=== PATIENT | female | born 1990 | race Two or more races ===

== ENCOUNTER 2025-09-28 15:39 | Observation (INO) | payer MEDICAID, SELFPAY ==
--- NOTE | 2025-09-28 15:59 | EKG_ITS ---
[facility] Test Date: 2025-09-28 Pat Name: DEBBIE PRINCE Department: Room: - Gender: Female Manager Cardiac Cath: : 1990 Requested By: Margo Hawley Order Number: [id number] Reading MD: Margo Hawley Measurements Intervals [place] Rate: 53 P: 53 PA: 156 QRS: 68 QRSD: 102 T: 18 QT: 436 QTc: 412 Interpretive Statements SINUS BRADYCARDIA POSSIBLE RIGHT VENTRICULAR CONDUCTION DELAY [RSR (QR) IN V1/V2] MODERATE ST DEPRESSION [0.05+ mV ST DEPRESSION] No previous ECG available for comparison /store/S0/[id number].pdf
--- NOTE | 2025-09-28 16:05 | EDNOTE_ITS ---
<Statement entered by Brittni Mcneil MD - 10/02/25 16:32> I, Britnti Mcneil MD, have reviewed the history, exam, and assessment of the patient. I have evaluated the patient independently and agree with the plan of care documented by [ ]. All diagnostic studies were reviewed and discussed. I confirm the diagnosis as documented by the Resident. I was present during the Medical Decision Making for this patient. The patient's plan of care was created between myself and the Resident and consistent with our discussion of the patient's case. ED Abdominal Pain RME/HPI General Chief Complaint: Abdominal Pain Stated complaint: ABD TENDER/PAIN RADIATING TO R), N/V Arrival date/time: 09/28/25 15:39 RME / HPI RME / HPI narrative: Patient is a 35-year-old female with a past medical history of migraine headaches who presented to the emergency room with chief complaint of tender abdomen. Patient stated abdominal pain began about 6 AM this morning that woke her out of sleep. Patient stated that pain started at the epigastric region and radiated downward towards the lower quadrants. Positive for nausea and vomiting. Patient has been unable to keep food down. Vomiting noted to be clear. Positive for diarrhea going on for the past 2 days with 2-3 bowel movements per day. Patient denied melena or hematochezia. Patient denied hematemesis. Patient's last period 1 week ago. Previous surgical history includes 2 C-sections. Denies any sick contacts. Chills at home. No fevers. Never had a colonoscopy. Denied history of crohns or UC. CBC CMP EKG Troponin Lipase and CT Abdomen Related Data Previous Rx's ?Medication ?Instructions ?Recorded hydrocodone 5 mg-acetaminophen 325 1 tab PO Q6H #20 ta bs 09/30/25 mg tablet Allergies Allergy/AdvReac Type Severity Reaction Status Date / Time No Known Allergies Allergy Verified 09/28/25 15:43 Review of Systems Review of Systems Narrative Review of Systems: General appearance: NO weight change, NO fatigue, NO weakness, NO fever, NO chills, NO night sweats, No cough Skin: NO rash, NO itching, NO sores, NO moles HEENT: NO Trauma, NO nausea, NO vomiting, NO visual changes, NO blurry vision, NO double vision, NO tinnitus, NO vertigo, NO ear discharge, NO rhinorrhea, NO stuffiness, NO sneezing, NO allergy, NO epistaxis. NO Hoarseness, NO sore throat, NO swollen neck. Cardiac: NO Palpitations, NO dyspnea on exertion, NO orthopnea, NO paroxysmal nocturnal dyspnea, NO edema Respiratory: NO Shortness of Breath, NO Wheezing, NO Cough, NO Sputum, NO hemoptysis GI:NO appetite, YES nausea, YES vomiting, NO dysphagia, NO changes in bowel frequency, NO stool color, Yes diarrhea, NO constipation, NO hemetemesis, NO hemorrhoids, NO melena, NO hematechezia, Yes abdominal pain, NO jaundice Renal: NO frequency, NO hesitancy, NO urgency, NO hematuria, NO nocturia, NO incontinence MSK: NO muscle weakness, NO gout, NO arthritis, NO muscle stiffness Neuro: NO headaches, NO tremors, NO weakness, NO paralysis, NO seizures, NO loss of consciousness, NO numbness. Hem: NO anemia, NO easy bruising/bleeding, NO petechiae, NO purpura Endo: NO heat/cold intolerance, NO excessive sweating, NO polyuria, NO polydipsia, NO polyphagia, NO thyroid problems, NO diabetes Pysch: NO mood, NO anxiety, NO depression ED Exam Narrative Physical exam: General Appearance: Alert & Oriented X3, well-nourished female who is lying in bed in Mild distress pain 8/10. HEENT: Skull symmetrical and atraumatic. Conjunctivae pink and moist. Pupils equal, round, reactive to light and accommodation (PERRL). External ear without lesion or discharge. Straight, nares patient, mucosa pink, no discharge. Cardio: Normal Rate and Rhythm with S1 and S2 heart sounds. No murmurs or extra heart sounds auscultated. No bruits on carotid auscultation. No peripheral edema or cyanosis. Lungs: Symmetric with good expansion. Chest and back non-tender. Breath sounds vesicular without crackles, wheezing or rhonchi Abdomen: Diffuse tenderness, Mild- distended, Normal Reactive Bowel Sounds, negative kruse Neuro: Alert, cooperative, oriented to person, place, and time. Speech clear. CN grossly intact. Upper motor strength 5/5 and Lower motor strength 5/5. Sensation intact. Course Course Course Narrative: Patient presented with chief complain of abdominal tenderness starting at epigastric region and radiating down towards right lower quadrant. CBC CMP Lipase CT abdomen ordered. Pending CT [place], please follow up Quality Measures none Orders Category Date Time Status CT Screening NOW Care 09/28/25 16:08 Completed EKG (ED ONLY) *Do not use* NOW Care 09/28/25 15:[address] abdomen pelvis w con Urgent Exams 09/28/25 16:07 Completed EKG (ED Only) Stat Exams 09/28/25 15:59 Draft CBC Stat Lab 09/28/25 16:07 Completed Comprehensive Metabolic Panel Stat Lab 09/28/25 16:07 Completed Drug Screen,Urine Stat Lab 09/28/25 17:00 Completed HCG Qualitative,Urine Stat Lab 09/28/25 17:00 Completed Lactic Acid [Lactate (Lactic Acid)] Stat Lab 09/28/25 16:07 Completed Lipase Stat Lab 09/28/25 16:07 Completed Magnesium Stat Lab 09/28/25 16:07 Completed Partial Thromboplastin Time Stat Lab 09/28/25 16:07 Completed Prothrombin Time with INR Stat Lab 09/28/25 16:07 Completed Troponin I Stat Lab 09/28/25 16:07 Completed Urinalysis, C/S if Indicated Stat Lab 09/28/25 17:00 Completed HYDROcodone*/APAP 5/325 [[place] 5/325] Med 09/28/25 16:00 Discontinued 1 tab PO X1 ONE cefTRIAXone/D5w 1gm IV premix [Rocephin/D5w 1gm IV Med 09/28/25 19:58 Discontinued premix] 1 gm in 50 ml IV X1 metroNIDAZOLE/NS 500 MG IVPB [Flagyl 500 mg IV] Med 09/28/25 19:58 Discontinued 500 mg in 100 ml IV X1 Vital Signs Vital signs: Vital Signs Temperature 97.8 F 09/28/25 16:10 Pulse Rate 53 L 09/28/25 16:10 Respiratory Rate 20 09/28/25 16:10 Blood Pressure 134/79 H 09/28/25 16:10 Pulse Oximetry (%) 99 09/28/25 16:10 Oxygen Delivery Method Room Air 09/28/25 16:10 Abdominal Pain MDM Patient data External records reviewed:: [facility] previous records Clinical information provided by:: patient Social determinants that could affect healthcare access:: none Patient has the following chronic illnesses:: Anxiety and history of migraine headaches How is presenting disease/condition affected by chronic disease/condition?: uneffected by Evaluation data The following diagnostics were reviewed and interpreted by me:: lab results and EKG tracing(s) Lab and/or radiology exams considered but not ordered:: none Interpretation Summary: Pending CT Abdomen, signed off to night team, Dr. Breen. Medications / Prescriptions Medications or Prescriptions considered but not ordered:: none Medication administrations:: Medication Administration History Discontinued Medications Hydrocodone Bitart/Acetaminophen (Hydrocodone/Apap 5/325 Tablet) 1 tab PO X1 ONE Stop: 09/28/25 16:01 Last Admin: 09/28/25 16:17 Dose: 1 tab Documented By: Bupivacaine HCl/Epinephrine Bitart (Bupivacaine Mpf/Epi 0.5% 30 Ml Vial 1:200,000) Confirm Administered Dose 30 ml .ROUTE .STK-MED ONE Stop: 09/29/25 06:13 Dexamethasone Sodium Phosphate (Dexamethasone Sod Phos Inj 10 Mg/Ml Vial) Confirm Administered Dose 10 mg .ROUTE .STK-MED ONE Stop: 09/29/25 05:52 Fentanyl Citrate (Fentanyl Cit Inj 50 Mcg/Ml Amp 2ml) Confirm Administered Dose 100 mcg .ROUTE .STK-MED ONE Stop: 09/29/25 06:11 Fentanyl Citrate (Fentanyl Cit Inj 50 Mcg/Ml Amp 2ml) Confirm Administered Dose 100 mcg .ROUTE .STK-MED ONE Stop: 09/29/25 06:33 Fentanyl Citrate (Fentanyl Cit Inj 50 Mcg/Ml Amp 2ml) 50 mcg IVP Q5M PRN PRN Reason: PAIN SCALE 4-10(Mod-Sev Glycopyrrolate (Glycopyrrolate Inj 0.2 Mg/Ml Vial 5 Ml) Confirm Administered Dose 1 mg .ROUTE .STK-MED ONE Stop: 09/29/25 07:16 Glycopyrrolate (Glycopyrrolate Inj 0.2 Mg/Ml Vial 5 Ml) Confirm Administered Dose 1 mg .ROUTE .STK-MED ONE Stop: 09/29/25 08:02 Hydralazine HCl (Hydralazine Inj 20 Mg/Ml Vial) 5 mg IVP Q20M PRN PRN Reason: SEE COMMENTS Ceftriaxone Sodium/Dextrose (Rocephin/D5w 1gm Iv Premix) 1 gm in 50 mls @ 100 mls/hr IV X1 ONE Stop: 09/28/25 20:27 Last Infusion: 09/28/25 20:34 Dose: Infused Documented By: Admin: 09/28/25 20:08 Dose: 100 mls/hr Documented By: NIKO Metronidazole (Flagyl 500 Mg Iv) 500 mg in 100 mls @ 100 mls/hr IV X1 ONE Stop: 09/28/25 20:57 Last Infusion: 09/28/25 23:18 Dose: Infused Documented By: Admin: 09/28/25 20:34 Dose: 100 mls/hr Documented By: MELLISSA Sodium Chloride (Ns) 1,000 mls @ 100 mls/hr IV .Q10H LINDA Stop: 10/28/25 20:59 Last Admin: 09/30/25 09:43 Dose: 100 mls/hr Documented By: SC Infusion: 09/30/25 07:21 Dose: Infused Documented By: SC Admin: 09/29/25 21:21 Dose: 100 mls/hr Documented By: Infusion: 09/29/25 21:06 Dose: Infused Documented By: Admin: 09/29/25 11:06 Dose: 100 mls/hr Documented By: SC Infusion: 09/29/25 07:07 Dose: Infused Documented By: SC Admin: 09/28/25 21:07 Dose: 100 mls/hr Documented By: MELLISSA Piperacillin/Tazobactam/Dextrose (Zosyn) 3.375 gm in 50 mls @ 100 mls/hr IV Q8HR [facility]; Protocol Stop: 10/05/25 20:54 Last Admin: 09/30/25 05:09 Dose: 100 mls/hr Documented By: Infusion: 09/29/25 21:43 Dose: Infused Documented By: Admin: 09/29/25 21:13 Dose: 100 mls/hr Documented By: Infusion: 09/29/25 14:15 Dose: Infused Documented By: Admin: 09/29/25 13:45 Dose: 100 mls/hr Documented By: SC Infusion: 09/29/25 06:05 Dose: Infused Documented By: SC Admin: 09/29/25 05:35 Dose: 100 mls/hr Documented By: Admin: 09/28/25 23:17 Dose: Not Given Documented By: EE Non-Admin Reason: Duplicate Medication on eMAR Infusion: 09/28/25 21:39 Dose: Infused Documented By: Admin: 09/28/25 21:09 Dose: 100 mls/hr Documented By: EE Acetaminophen (Ofirmev Inj) Confirm Administered Dose 100 mls @ ud IV .STK-MED ONE Stop: 09/29/25 06:26 Ketorolac Tromethamine (Ketorolac Inj 30 Mg/Ml Vial) 30 mg IVP X1 PRN PRN Reason: PAIN SCALE 4-10(Mod-Sev Stop: 10/04/25 06:58 Lidocaine HCl (Lidocaine Inj Pf 1% 2 Ml Vial) Confirm Administered Dose 2 ml .ROUTE .STPinguo-MED ONE Stop: 09/29/25 05:52 Meperidine HCl (Meperidine Inj 50 Mg/Ml Vial) 12.5 mg IVP Q5M PRN PRN Reason: SHIVERING Stop: 10/04/25 06:57 Metoclopramide HCl (Metoclopramide Inj 5 Mg/Ml Vial 2 Ml) 10 mg IVP X1 PRN; Protocol PRN Reason: NAUSEA OR VOMITING Midazolam HCl (Midazolam Inj 1 Mg/Ml Vial 2 Ml) 1 mg IVP Q5M PRN PRN Reason: ANXIETY Stop: 09/30/25 06:57 Morphine Sulfate (Morphine Sulf Inj 4 Mg/Ml Vial) 4 mg IVP Q4HR PRN PRN Reason: PAIN Stop: 10/03/25 20:52 Last Admin: 09/30/25 09:45 Dose: 4 mg Documented By: SC Admin: 09/29/25 21:18 Dose: 4 mg Documented By: Admin: 09/29/25 16:21 Dose: 4 mg Documented By: SC Admin: 09/29/25 11:06 Dose: 4 mg Documented By: SC Admin: 09/29/25 05:39 Dose: 4 mg Documented By: Admin: 09/29/25 01:37 Dose: 4 mg Documented By: Admin: 09/28/25 21:09 Dose: 4 mg Documented By: EE Morphine Sulfate (Morphine Sulf Inj 4 Mg/Ml Vial) 2 mg IVP Q10M PRN PRN Reason: PAIN SCALE 4-10(Mod-Sev Neostigmine Methylsulfate (Neostigmine Inj 1:1000 10 Ml Vial) Confirm Administered Dose 10 ml .ROUTE .STPinguo-MED ONE Stop: 09/29/25 07:16 Ondansetron HCl (Ondansetron Inj 2 Mg/Ml Inj 2 Ml) Confirm Administered Dose 4 mg .ROUTE .STK-MED ONE Stop: 09/29/25 06:33 Ondansetron HCl (Ondansetron Inj 2 Mg/Ml Inj 2 Ml) 4 mg IVP X1 PRN PRN Reason: NAUSEA OR VOMITING Propofol (Propofol Inj 10 Mg/Ml Vial 20 Ml) Confirm Administered Dose 200 mg IV .STK-MED ONE Stop: 09/29/25 05:51 Rocuronium [place] (Rocuronium Inj 10 Mg/Ml Vial 10 Ml) Confirm Administered Dose 100 mg .ROUTE .STK-MED ONE Stop: 09/29/25 05:51 same as above Consultations Consultation(s) initiated? (list below): No Diagnosis Differential diagnosis abdominal pain: abdominal pain, acute appendicitis, constipation, pancreatitis and other (coloitis ) Most likely diagnosis given after review of the tests above:: Colitis likely diagnosis as there is concern for several episode of diarrhea, pending images -->signed out to night team. - The patient's plan was discussed with attending Dr. Tarun Hawley MD PGY2 Internal Medicine Admission Indicated Admission indicated?: not indicated (Pending final results ) Admission Request Was there a request for admission?: No Admission Attestation Admission request attestation: signed off to night, penidng final results Disposition Plan Disposition Plan: other (specify) (Pending final results ) Discharge Plan Plan Patient Disposition: Admit Acute Care w/in Hospital Problem List Clinical Impression: Abdominal pain
--- NOTE | 2025-09-28 16:07 | XR_ITS ---
Examination: CT abdomen with intravenous contrast CT pelvis with intravenous contrast 2-D coronal reconstructions 2-D sagittal reconstructions Date and time of exam: September 28, 2025, 1841 hours INDICATIONS: Diffuse abdominal pain beginning 3 days ago. CTDI: vol (mGy) 9.74 DLP: (mGycm) 555 Technique: Multiple axial sections of the abdomen and pelvis have been obtained. 64 slice high-resolution scanner used. 3 mm axial sections have been obtained, post intravenous injection 60 cc Isovue-370 2-D sagittal, coronal reconstructions obtained. Low dose protocols were performed. One or more of the following dose reduction techniques were used; automated exposure control, adjustment of the mA and/or KV according to patient size, use of iterative reconstruction technique. Findings: Pericardial effusion at the base of the heart measuring 17 mm No visualized liver or splenic lesion No gallstones No pancreatic or adrenal mass No renal or ureteral calculi, no hydronephrosis Aorta normal size Fluid-filled enlarged inflamed appendix, axial images 164 through 185, below and medial to the cecum, also coronal images 50 through 39 No free air There is mild free fluid in the pelvis No pelvic mass Contracted urinary bladder IMPRESSION: Acute appendicitis, the appearance should be clinically correlated
[2025-09-28 16:10] VITALS: BP 134/79; PULSE 53; RESP 20; TEMP 36.6; O2SAT 99; BMI 27.3
[2025-09-28] MEDS: HYDROcodone/APAP 5/325 TABLET 1 TAB PO (16:17)
[2025-09-28 16:23] LABS: Lactate (Lactic Acid) 0.8 mMol/L (0.4-2.0)
[2025-09-28 16:25] LABS: Basophils # (Auto) 0.0 Thou/mm3 (0.0-0.2); Basophils % (Auto) 0 % (0-2.5); Eosinophils # (Auto) 0.1 Thou/mm3 (0.0-0.5); Eosinophils % (Auto) 1 % (0-10); Hematocrit 35.2 % (36.0-46.0); Hemoglobin 11.5 g/dL (12.0-16.0); Immature Granulocytes Auto 0.04 Thou/mm3 (0.00-0.00); Lymphocytes # (Auto) 1.4 Thou/mm3 (1.0-4.8); Lymphocytes % (Auto) 13 % (10-50); Mean Corpuscular HGB Conc 32.7 g/dl (31.0-37.0); Mean Corpuscular Hemoglobin 28.0 pg (25.0-35.0); Mean Corpuscular Volume 86 fL (80-100); Monocytes # (Auto) 1.1 Thou/mm3 (0.0-0.8); Monocytes % (Auto) 10 % (0-12); Neutrophils # (Auto) 8.3 Thou/mm3 (1.8-7.7); Neutrophils % (Auto) 75 % (37-80); Nucleated Red Blood Cell # 0.00 Thou/mm3 (0.00-0.00); Nucleated Red Blood Cell % 0 /100 WBC (0); Platelet Count 260 Thou/mm3 (140-440); RDW Standard Deviation 45.4 fL (36.4-46.3); Red Blood Count 4.10 Miln/mm3 (4.00-5.20); White Blood Count 11.0 Thou/mm3 (3.6-11.0)
[2025-09-28 16:42] LABS: INR 1.1 (0.9-1.3); Partial Thromboplastin Time 27.6 Seconds (22.0-36.0); Prothrombin Time 11.4 Seconds (9.0-12.2)
[2025-09-28 16:45] LABS: Alanine Aminotransferase 25 U/L (10-49); Albumin, Serum 4.7 gm/dL (3.5-5.0); Albumin/Globulin Ratio 2.2 (1.2-2.2); Alkaline Phosphatase 49 U/L (46-116); Anion Gap 9 (7-16); Aspartate Amino Transferase 25 U/L (0-34); BUN/Creatinine Ratio 10 Ratio (12-20); Bilirubin,Total 0.6 mg/dL (0.3-1.2); Blood Urea Nitrogen 7 mg/dL (9-23); Calcium 9.2 mg/dL (8.3-10.6); Calcium (Corrected) 9.2 mg/dL (8.5-10.1); Carbon Dioxide 26.6 mMol/L (20.0-31.0); Chloride 105 mMol/L (98-107); Creatinine (Component) 0.7 mg/dL (0.6-1.3); Estimated Creatinine Clearance 124.0 mL/min (>60); Globulin 2.1 gm/dL (2.3-3.5); Glucose 107 mg/dL (74-106); Lipase 27 U/L (12-53); Magnesium 2.1 mg/dL (1.6-2.6); Osmolality,Calculated 279 (275-295); Potassium 4.2 mMol/L (3.4-5.1); Sodium 141 mMol/L (136-145); Total Protein 6.8 gm/dL (5.7-8.2); Troponin I < 0.002 ng/mL (0.0-0.045); eGFR > 60 See Note
[2025-09-28 17:11] LABS: Collection Type, Urine Clean Catch
[2025-09-28 17:32] LABS: Bacteria,Urine Rare; Bilirubin,Urine Negative (Negative); Blood,Urine Trace (Negative); Clarity,Urine Clear (Clear/Hazy); Color,Urine Lt-Yellow (Lt Yel-Yel); Culture Indicated,Urine Not Indicated; Glucose, Urine Negative (Negative); Ketones,Urine 2+ (Negative); Leukocyte Esterase,Urine Negative (Negative); Nitrite,Urine Negative (Negative); PH,Urine 6.0 (5.0-7.0); Protein,Urine Negative (Neg - Trace); RBC,Urine 9 /hpf (0-3); Specific Gravity,Urine 1.022 (1.001-1.035); Squamous Epithelial Cell,Urine 6 /hpf (0-5); Urobilinogen,Urine Negative mg/dL (0.0-1.0); WBC,Urine 5 /hpf (0-5)
[2025-09-28 17:33] LABS: HCG Qualitative,Urine Negative
--- NOTE | 2025-09-28 18:11 | PD.EDADDENDU ---
Emergency Room Addendum <Zulma Gaxiola - Last Filed: 09/28/25 19:37> Addendum Narrative: 1800: Care assumed from Dr. Hawley, attending Dr. Mcneil. Past medical, surgical, social and family history reviewed. Vitals and home medications reviewed. Results and treatment plan discussed. I will assume the care of the patient at this time and will follow the patient. Please refer to the emergency department record for history and examination from initial visit. RADIOLOGY RESULTS: [facility] Signed Patient: DEBBIE PRINCE Record#: [id number] Birthdate: 1990 Age/Sex: 35 / F Location: [facility] Attending Dr: Ordering Physician: Margo Hawley MD Date of Service: 09/28/25 Procedure(s): CT abdomen pelvis w con Accession Number(s): [id number] cc: Sher Hadley MD; NO PRIMARY/FAMILY,PHYSICIAN; Margo Hawley MD~ Examination: CT abdomen with intravenous contrast CT pelvis with intravenous contrast 2-D coronal reconstructions 2-D sagittal reconstructions Date and time of exam: September 28, 2025, 1841 hours INDICATIONS: Diffuse abdominal pain beginning 3 days ago. CTDI: vol (mGy) 9.74 DLP: (mGycm) 555 Technique: Multiple axial sections of the abdomen and pelvis have been obtained. 64 slice high-resolution scanner used. 3 mm axial sections have been obtained, post intravenous injection 60 cc Isovue-370 2-D sagittal, coronal reconstructions obtained. Low dose protocols were performed. One or more of the following dose reduction techniques were used; automated exposure control, adjustment of the mA and/or KV according to patient size, use of iterative reconstruction technique. Findings: Pericardial effusion at the base of the heart measuring 17 mm No visualized liver or splenic lesion No gallstones No pancreatic or adrenal mass No renal or ureteral calculi, no hydronephrosis Aorta normal size Fluid-filled enlarged inflamed appendix, axial images 164 through 185, below and medial to the cecum, also coronal images 50 through 39 No free air There is mild free fluid in the pelvis No pelvic mass Contracted urinary bladder IMPRESSION: Acute appendicitis, the appearance should be clinically correlated Dictated By: Sher Hadley MD Signed By: <Electronically signed by Sher Hadley MD in [place]> 09/28/25 191 <Brian Marson, DO - Last Filed: 09/28/25 20:01> Addendum Narrative: 1800: Care assumed from Dr. Hawley, attending Dr. Mcneil. Past medical, surgical, social and family history reviewed. Vitals and home medications reviewed. Results and treatment plan discussed. I will assume the care of the patient at this time and will follow the patient. Please refer to the emergency department record for history and examination from initial visit. RADIOLOGY RESULTS: [facility] Signed Patient: DEBBIE PRINCE. Record#: [id number] Birthdate: 1990 Age/Sex: 35 / F Location: [facility] [place] Attending Dr: Ordering Physician: Margo Hawley MD Date of Service: 09/28/25 Procedure(s): CT abdomen pelvis w con Accession Number(s): [id number] cc: Sher Hadley MD; NO PRIMARY/FAMILY,PHYSICIAN; Margo Hawley MD~ Examination: CT abdomen with intravenous contrast CT pelvis with intravenous contrast 2-D coronal reconstructions 2-D sagittal reconstructions Date and time of exam: September 28, 2025, 1841 hours INDICATIONS: Diffuse abdominal pain beginning 3 days ago. CTDI: vol (mGy) 9.74 DLP: (mGycm) 555 Technique: Multiple axial sections of the abdomen and pelvis have been obtained. 64 slice high-resolution scanner used. 3 mm axial sections have been obtained, post intravenous injection 60 cc Isovue-370 2-D sagittal, coronal reconstructions obtained. Low dose protocols were performed. One or more of the following dose reduction techniques were used; automated exposure control, adjustment of the mA and/or KV according to patient size, use of iterative reconstruction technique. Findings: Pericardial effusion at the base of the heart measuring 17 mm No visualized liver or splenic lesion No gallstones No pancreatic or adrenal mass No renal or ureteral calculi, no hydronephrosis Aorta normal size Fluid-filled enlarged inflamed appendix, axial images 164 through 185, below and medial to the cecum, also coronal images 50 through 39 No free air There is mild free fluid in the pelvis No pelvic mass Contracted urinary bladder IMPRESSION: Acute appendicitis, the appearance should be clinically correlated Dictated By: Sher Hadley MD Signed By: <Electronically signed by Sher Hadley MD in OV> 09/28/251913 Case was signed out to me. It was signed out to me awaiting the CAT scan result. CAT scan of the abdomen and pelvis showed evidence for a fluid-filled enlarged inflamed appendix. On exam the patient does have McBurney's point tenderness. is negative. She is not febrile. White count is 11,000. is negative. Patient received 1 g of Rocephin IV and 500 mg of Flagyl IV. I discussed this case with Dr. Valenzuela, general surgeon on-call, who will come in to evaluate the patient.
[2025-09-28 19:34] LABS: Amphetamine/Methamp Scrn,U Negative (Negative); Barbiturate Screen,Urine Negative (Negative); Benzodiazepines Screen,Urine Negative (Negative); Benzoylecgonine Screen, Ur Negative (Negative); Fentanyl Screen,Urine Negative (Negative); Opiate Screen,Urine Negative (Negative); THC Screen,Urine Negative (Negative)
[2025-09-28 20:00] VITALS: BP 120/68; PULSE 50; RESP 16; TEMP 36.9; O2SAT 98
[2025-09-28] MEDS: cefTRIAXone/D5w 1gm IV premix 1 GM/50 ML BAG IV (20:08)
[2025-09-28] MEDS: metroNIDAZOLE/NS 500 MG IVPB 500 MG/100 ML BAG 100 MG IV (20:34)
[2025-09-28] MEDS: SODIUM CHLORIDE 0.9% 1000 ML 1,000 ML 100 ML IV (21:07)
[2025-09-28] MEDS: PIPER/TAZO 3.375 GM PREMIX 3.375 GM/50 ML BAG IV (21:09)
[2025-09-28] MEDS: MORPHINE SULF INJ 4 MG/ML VIAL IVP (21:09)
[2025-09-28 22:06] VITALS: BP 126/69; PULSE 62; RESP 17; TEMP 36.9; O2SAT 99
--- NOTE | 2025-09-28 22:32 | PC.NURSE ---
DR GRIJALVA, SURGEON AT BEDSIDE U CONSENT FOR SURGERY. ALL QUESTIONS ANSWERED, PT STATES SHE VERBALLY UNDERSTANDS AND HAS AGREED TO HAVE SURGERY. CONSENT SIGNED BY , AND PT AND DE ICER ELEMENT WINDER WITNESS.
[2025-09-28 23:45] VITALS: BMI 28.8
[2025-09-29] VITALS (12 sets, daily range): BP systolic 97–130; BP diastolic 52–71; PULSE 48–76; RESP 15–18; TEMP 36.1–36.8; O2SAT 96–100
[2025-09-29] MEDS: MORPHINE SULF INJ 4 MG/ML VIAL IVP ×5 (01:37→21:18)
[2025-09-29] MEDS: PIPER/TAZO 3.375 GM PREMIX 3.375 GM/50 ML BAG IV ×3 (05:35→21:13)
--- NOTE | 2025-09-29 06:19 | PC.NURSE ---
Patient picked up by surgery nurse.
--- NOTE | 2025-09-29 07:21 | PC.NURSE ---
pt in surgery still
--- NOTE | 2025-09-29 07:36 | PD.SURHP ---
HPI Date of Admission 09/28/25 20:53 Chief Complaint Chief Complaint: Patient is admitted with a diagnosis of acute appendicitis HPI History of present illness revealed that the patient was in her usual health until this morning when she started having pain around the umbilicus and then over the right lower quadrant. She was nauseated but no vomiting. She has not had no diarrhea. No history of fever or chills. Her past medical history is essentially normal under past surgery consisted of 2 sections and tubal ligation Past Medical History Past Medical History NEUROLOGIC: Negative Neurological Disorders or Seizures CARDIAC: Negative Cardiac Disorders or Congestive Heart Failure RESPIRATORY: Negative Chronic Obstructive Pulmonary Disease (COPD) or Asthma GASTROINTESTINAL: Negative Gastrointestinal Disorders, Hepatitis or Obesity GENITOURINARY: Negative Genitourinary Disorders or Renal Disease REPRODUCTIVE: Positive Previous Pregnancies; Negative Endometriosis, Genital Herpes, Gonorrhea, Pelvic Inflammatory Disease, Syphilis or Uterine Prolapse MUSCULOSKELETAL: Negative Musculoskeletal Disorders ENDOCRINE: Negative Endocrine Disorders, Diabetes Mellitus Type 1 or Diabetes Mellitus Type 2 HEMATOLOGIC: Positive Blood Disorders and Anemia (iron); Negative Sickle Cell Disease PSYCHO/SOCIAL: Positive Depression OTHER HISTORY: Positive Hospitalization (2020; 2015), Blood Transfusions and Chicken Pox; Negative Autoimmune Disease, Down Syndrome, Developmental Delay, Shingles, Falls, Blood Transfusion Reaction, Anesthesia Reactions, Human Immunodeficiency Virus (HIV), Measles, Mumps, Rubella (Surinamese Measles), Pertussis, Clostridium Difficile or Cancer Family History FAMILY HISTORY: Positive Family Cardiac Disorders (mother); Negative Family Psychiatric Problems, Family Respiratory Disorders, Family Gastrointestinal Problems, Family Cancer, Family Surgery or Family Anesthesia Reaction Surgical History SURGICAL: Positive Section (x1); Negative Cardiac Surgery, Endocrine Surgery, Ear Surgery or Abdominal Surgery Social History SMOKING STATUS: Never smoker SECOND HAND EXPOSURE: No ALCOHOL LAST INTAKE: Days (ago) Meds Home Medications and Allergies Home Medications ?Medication ?Instructions ?Recorded ?Confirmed ?Type No Known Home Medications 09/29/25 09/29/25 History Allergies Allergy/AdvReac Type Severity Reaction Status Date / Time No Known Allergies Allergy Verified 09/28/25 15:43 Exam Vital Signs Temp Pulse Resp BP Pulse Ox O2 Del Method 98.2 F 66 16 114/63 99 Room Air 09/29/25 04:00 09/29/25 04:00 09/29/25 04:00 09/29/25 04:00 09/29/25 04:00 09/29/25 04:00 Narrative Exam Physical examination revealed pleasant healthy female who is 5 foot 7 inches tall weighing 184 pounds with BMI of 28.8. Vital signs are normal Routine HEENT Exam Comments: Within normal limits Routine Neck Exam Comments: Normal Routine Chest/Breast/Axilla Exam Comments: Normal Routine Respiratory Exam Comments: Good breath sounds on both sides Routine Cardiovascular Exam Comments: Sinus rhythm Routine Abdominal Exam Comments: Examination of the abdomen showed a definite tenderness over the right lower quadrant and the McBurney's point. Rest of the abdomen is soft. Patient had Pfannenstiel surgical scar from previous section Routine Rectal Exam Comments: Deferred Routine Exam Comments: Deferred Routine Extremities Exam Comments: Within normal limits Results Results: Laboratory Laboratory Narrative: Patient's laboratory Showed mild leukocytosis with WBC more than 11,000 Results: Imaging Imaging narrative: CT scan showed acute appendicitis with swollen appendix surrounded with edema Assessment & Plan Additional Assessment Additional comments: Impression: Acute appendicitis Plan Plan: Patient will be admitted and started on antibiotics and IV fluids. She will be taken to the operating room as soon as 1 is available. The patient was told about the laparoscopic appendectomy procedure in detail. This procedure he and was minimally invasive surgery but has a potential for small bowel injury or bleeding requiring open surgery etc. With the open surgery patient may have wound infection. She is agreeable and will proceed with surgery Quality Measures Quality Measures none
--- NOTE | 2025-09-29 07:40 | SUR.PHASEI ---
Arrived to [facility] via [facility]. Report received from Nicolas TAPIA and Dr. Hanson. Resting with eyes closed. Responding to questions and commands appropriately.
--- NOTE | 2025-09-29 07:40 | PD.SUROPNT ---
Date of Procedure 09/29/25 Pre Op Diagnosis Acute appendicitis Post Op Diagnosis Same Procedure Laparoscopic appendectomy Findings Patient is found to have an appendix that was called over the cecum and firmly adherent to the later Procedure Description After the patient was placed in supine position and anesthesia was administered with endotracheal intubation. Abdomen was prepped with ChloraPrep solution and draped in a sterile manner. A timeout was performed and a small incision was made just above the umbilicus. Fascia was cleaned and Veress needle was inserted to obtain a pneumoperitoneum up to 15 mmHg. Then I introduced a 12 mm trocar at the umbilicus with a 10 mm camera. Patient was kept in Trendelenburg position with the left lateral tilt. Intra-abdominal organs were visualized and this showed omentum covering the right lower quadrant. A 5 mm trocar was inserted in the right lower quadrant under direct vision and using a laparoscopic Cha I move the omentum and identified the appendix. Appendix was inflamed in its entire length and was located medial to the cecum. Another 5 mm trocar was inserted in the left lower quadrant under direct vision and using Harmonic taya I dissected the mesoappendix cauterizing the vessels. The appendix was inflamed in its entire length and was called and firmly adherent to the cecum. I had to carefully dissect out the appendix and away from the cecum without injuring the later. When the base of the appendix was reached this was stapled using an Endo cutter 35 power jose. Then the appendix was retrieved through the Endopouch through the umbilical port. Then after irrigating and cleaning the pelvis and the right lower quadrant all the trocars were pulled out and the pneumoperitoneum was let out. Fascia was closed with interrupted 0 Ethibond and then I injected half percent Marcaine with epinephrine for analgesia. Skin was then closed with interrupted 4-0 Monocryl subcuticular stitches and a Tegaderm dressing was applied. Patient tolerated the procedure well and returned to recovery room in stable condition. Anesthesia GETA Pathology / specimen Other (Inflamed appendix) IVF Infused 800 Estimated Blood Loss 20 Surgeon Anna Ybarra MD Surgical Staff Operation Date: 09/29/25 06:15 Case Staff Anesthesiologist: Rishi Hanson RNadvertising sales representative: Mela Cedeño
--- NOTE | 2025-09-29 08:20 | SUR.PHASEI ---
0820 Patient transported via rney to room 381 without incident, patient able to ambulate from [facility] to bed with stand-by assist from this ad writer, Avi MCDONALD promptly arrived in patients room, patient resting comfortably in [facility], eating ice chips whent this ad writer left patient room
[2025-09-29] MEDS: SODIUM CHLORIDE 0.9% 1000 ML 1,000 ML 100 ML IV ×2 (11:06→21:21)
--- NOTE | 2025-09-29 11:40 | PC.SS ---
Mary Dimas is a 35-year-old female admitted to Med Surg for Acute Appendicitis. SS conducted bedside contact with the patient to complete initial assessment and to discuss discharge planning. Role and reason explained. Patient confirmed demographic information. Patient identifies Surendra Mccormick [phone] as her surrogate decision maker. Pt states she is able to complete all ADL?s independently. No need for any source of DME. Pt does not have a PCP but goes to [facility] for needs. Pharmacy of choice is [facility]. Discharge options discussed and the pt wishes to return home.? Family will provide transportation upon DC. No further intervention required at this time, social work administrator would be available to address any further concerns. DC Plan: Home Contact: Surendra Address: Confirmed on face sheet PCP: CRUZ
--- NOTE | 2025-09-29 17:29 | PD.SURPROG ---
Documentation for date of: 09/29/25 Subjective Subjective Brief History: History of present illness revealed that the patient was in her usual health until this morning when she started having pain around the umbilicus and then over the right lower quadrant. She was nauseated but no vomiting. She has not had no diarrhea. No history of fever or chills. Her past medical history is essentially normal under past surgery consisted of 2 sections and tubal ligation Exam Vital Signs Temp Pulse Resp BP Pulse Ox O2 Del Method O2 Flow Rate 97.8 F 51 L 18 130/71 99 Room Air 2 09/29/25 16:00 09/29/25 16:00 09/29/25 16:00 09/29/25 16:00 09/29/25 16:00 09/29/25 16:00 09/29/25 12:00 Assessment & Plan Assessment Additional comments: Impression: Patient is feeling better after laparoscopic appendectomy but does not feel like going home yet due to pain Plan Plan: We shall keep her for another day with IV antibiotics and pain relief PROCEDURES: Procedures Laparoscopic appendectomy
[2025-09-30] VITALS: BP 117/61; PULSE 46; RESP 15; TEMP 36.5; O2SAT 100
[2025-09-30 04:00] VITALS: BP 113/65; PULSE 56; RESP 15; TEMP 36; O2SAT 98
[2025-09-30] MEDS: PIPER/TAZO 3.375 GM PREMIX 3.375 GM/50 ML BAG IV (05:09)
[2025-09-30 06:07] LABS: Basophils # (Auto) 0.0 Thou/mm3 (0.0-0.2); Basophils % (Auto) 0 % (0-2.5); Eosinophils # (Auto) 0.0 Thou/mm3 (0.0-0.5); Eosinophils % (Auto) 0 % (0-10); Hematocrit 27.7 % (36.0-46.0); Hemoglobin 9.1 g/dL (12.0-16.0); Immature Granulocytes Auto 0.03 Thou/mm3 (0.00-0.00); Lymphocytes # (Auto) 1.2 Thou/mm3 (1.0-4.8); Lymphocytes % (Auto) 16 % (10-50); Mean Corpuscular HGB Conc 32.9 g/dl (31.0-37.0); Mean Corpuscular Hemoglobin 28.6 pg (25.0-35.0); Mean Corpuscular Volume 87 fL (80-100); Monocytes # (Auto) 0.8 Thou/mm3 (0.0-0.8); Monocytes % (Auto) 11 % (0-12); Neutrophils # (Auto) 5.6 Thou/mm3 (1.8-7.7); Neutrophils % (Auto) 73 % (37-80); Nucleated Red Blood Cell # 0.00 Thou/mm3 (0.00-0.00); Nucleated Red Blood Cell % 0 /100 WBC (0); Platelet Count 198 Thou/mm3 (140-440); RDW Standard Deviation 47.7 fL (36.4-46.3); Red Blood Count 3.18 Miln/mm3 (4.00-5.20); White Blood Count 7.7 Thou/mm3 (3.6-11.0)
[2025-09-30 08:00] VITALS: BP 114/64; PULSE 53; RESP 18; TEMP 36.3; O2SAT 99
[2025-09-30] MEDS: SODIUM CHLORIDE 0.9% 1000 ML 1,000 ML 100 ML IV (09:43)
[2025-09-30] MEDS: MORPHINE SULF INJ 4 MG/ML VIAL IVP (09:45)
[2025-09-30 11:24] VITALS: PULSE 60; RESP 18; RESP 98
[2025-09-30 12:00] VITALS: BP 110/64; PULSE 56; RESP 18; TEMP 36.6; O2SAT 99
--- NOTE | 2025-09-30 12:58 | PD.SURPROG ---
Documentation for date of: 09/30/25 Subjective Subjective Brief History: History of present illness revealed that the patient was in her usual health until this morning when she started having pain around the umbilicus and then over the right lower quadrant. She was nauseated but no vomiting. She has not had no diarrhea. No history of fever or chills. Her past medical history is essentially normal under past surgery consisted of 2 sections and tubal ligation Narrative: Patient is feeling better and free of pain. She is passing flatus. She is tolerating clear liquids Exam Vital Signs Temp Pulse Resp BP Pulse Ox O2 Del Method O2 Flow Rate 97.8 F 56 L 18 110/64 99 Room Air 2 09/30/25 12:00 09/30/25 12:00 09/30/25 12:00 09/30/25 12:00 09/30/25 12:00 09/30/25 12:00 09/30/25 12:00 Vital signs are normal Routine Abdominal Exam Comments: Abdominal examination is negative Results Results: Laboratory Laboratory Narrative: Patient's WBC is within normal limits Assessment & Plan Assessment Additional comments: Impression: Stable recovery following laparoscopic appendectomy Plan Plan: We shall discharge patient today and follow-up next week PROCEDURES: Procedures Laparoscopic appendectomy
== END 2025-09-30 15:05 | disposition home or self-care (01) ==
LOC: SERX 18:10 → S3SX 09-29 05:32 → SERHOLD 09-29 07:04
PROVIDERS: Admitting Provider Surgery; Emergency Provider Emergency Medicine; Visit Provider Surgery
PROC: 0DTJ4ZZ Resection of Appendix, Percutaneous Endoscopic Approach (ICD-10-PCS; CPT 44970; principal; 2025-09-29 06:00)
DX: K35.30 Acute appendicitis with localized peritonitis, without perforation or gangrene (principal)
CPT/HCPCS: 44970; 36415; 74177; 80053; 80307; 81001; 81025; 83605; 83690; 83735; 84484; 85025; 85610; 85730; 93005; 96361; 96365; 96366; 96375; 96376; 99284; A4217; A4649; C1713; G0378; J0131; J0696; J1100; J2270; J2405; J2543; J2704; J2710; J3010; J3490; J7030; Q9967; A9270; J1596; J1836

== ENCOUNTER 2025-10-23 01:48 | Emergency (ER) | payer MEDICAID, SELFPAY ==
[2025-10-23 01:48] VITALS: BMI 28.1
[2025-10-23 02:03] VITALS: BP 153/81; PULSE 63; RESP 16; TEMP 36.8; O2SAT 99
--- NOTE | 2025-10-23 02:09 | PD.EDEXREM ---
ED Extremity Problem RME/HPI General Chief complaint: Skin/Abscess/Foreign Body Stated complaint: BUMPS ON BILATERAL HANDS Arrival date/time: 10/23/25 01:48 RME / HPI RME / HPI Narrative: See MDM for Dr. Mata's HPI Documentation. Related Data Previous Rx's ?Medication ?Instructions ?Recorded hydrocodone 5 mg-acetaminophen 325 1 tab PO Q6H #20 tabs 09/30/25 mg tablet acetaminophen 300 mg-codeine 30 mg 2 tab PO Q8H PRN pain #10 tabs 10/23/25 tablet prednisone 50 mg tablet 50 mg PO QDAY #3 tabs 10/23/25 Allergies Allergy/AdvReac Type Severity Reaction Status Date / Time No Known Allergies Allergy Verified 09/28/25 15:43 Review of Systems Review of Systems Systems Reviewed: All systems reviewed, normal except as documented Past Medical History Past Medical History REPRODUCTIVE: Positive Previous Pregnancies HEMATOLOGIC: Positive Blood Disorders and Anemia (iron) PSYCHO/SOCIAL: Positive Depression OTHER HISTORY: Positive Hospitalization (2020; 2015), Blood Transfusions and Chicken Pox Family History FAMILY HISTORY: Positive Family Cardiac Disorders (mother) Surgical History SURGICAL: Positive Section (x1) ED Exam Narrative Physical exam: See [facility] for Dr. Mata's Physical Exam Documentation. Course Quality Measures none Orders Category Date Time Status Miscellaneous Nursing Order NOW Care 10/23/25 02:14 Completed Saline [Insert IV] NOW Care 10/23/25 02:11 Completed XR chest 1V portable Stat Exams 10/23/25 02:12 Completed XR foot comp RT min 3V Stat Exams 10/23/25 02:14 Completed XR knee LT 3V Stat Exams 10/23/25 02:14 Completed XR wrist comp BI min 3V Stat Exams 10/23/25 02:13 Completed TIERNEY IFA Screen w/refl, IFA* Stat Lab 10/23/25 03:00 Received Alcohol, Blood Medical Stat Lab 10/23/25 02:26 Completed BNP [B-Type Natriuretic Peptide] Stat Lab 10/23/25 02:26 Completed Beta Hydroxybutyrate Stat Lab 10/23/25 02:26 Completed Bilirubin,Direct Stat Lab 10/23/25 02:26 Completed Blood Culture (Lab) Stat Lab 10/23/25 02:31 Results CBC Stat Lab 10/23/25 02:26 Completed CK [Creatine Kinase] Stat Lab 10/23/25 02:26 Completed CMP [Comprehensive Metabolic Panel] Stat Lab 10/23/25 02:26 Completed CRP [C-Reactive Protein] Stat Lab 10/23/25 02:26 Completed Drug Screen,Urine Stat Lab 10/23/25 02:35 Completed ESR [Sed Rate (ESR)] Stat Lab 10/23/25 02:26 Completed HCG,Qualitative Serum Stat Lab 10/23/25 02:26 Completed Hemoglobin A1C [Glycohemoglobin w (eAG)] Stat Lab 10/23/25 02:26 Completed Lactate (Lactic Acid) Stat Lab 10/23/25 02:26 Completed Magnesium Stat Lab 10/23/25 02:26 Completed PT [Prothrombin Time with INR] Stat Lab 10/23/25 02:26 Completed PTT [Partial Thromboplastin Time] Stat Lab 10/23/25 02:26 Completed Procalcitonin Stat Lab 10/23/25 02:26 Completed RA Screen Stat Lab 10/23/25 02:26 Completed TSH [Thyroid Stimulating Hormone] Stat Lab 10/23/25 02:26 Completed UA, C/S IF [Urinalysis, C/S if Indicated] Stat Lab 10/23/25 02:35 Completed Uric Acid Stat Lab 10/23/25 02:26 Completed VBG [Venous Blood Gas] Stat Lab 10/23/25 02:26 Completed Ketorolac Inj [Toradol Inj] Med 10/23/25 02:11 Discontinued 30 mg IVP X1 ONE MethylPREDNISolone.* [SoluMEDROL Inj] Med 10/23/25 02:11 Discontinued 125 mg IVP X1 ONE Morphine* Inj Med 10/23/25 02:11 Discontinued 4 mg IV X1 ONE Ondansetron Inj [Zofran Inj] Med 10/23/25 02:11 Discontinued 4 mg IVP X1 ONE Sodium Chloride 0.9% 1000 ml [Ns] 1,000 ml Med 10/23/25 02:11 Discontinued IV 999 mls/hr Vital Signs Vital signs: Vital Signs Temperature 98.2 F 10/23/25 02:03 Pulse Rate 63 10/23/25 02:03 Respiratory Rate 16 10/23/25 02:03 Blood Pressure 153/81 H 10/23/25 02:03 Pulse Oximetry (%) 99 10/23/25 02:03 Oxygen Delivery Method Room Air 10/23/25 02:03 Extremity Problem MDM Narrative MDM Narrative:: This section includes all my notes and documentations, including HPI, PE, and ED course. Fred Mata MD HPI: 35 y/o female presents with severe BL wrist, left knee, and left foot pain x 3 days. No known cause. No known injury. No fever or chills or body aches or malaise. No similar episodes in the past. No other complaints. ROS: All negative except as documented in HPI. Physical Exam: General: Alert and oriented. In severe pain. Eyes: Conjunctivae and lids clear. ENT: No nasal congestion. Neck: Supple. Heart: RRR. Lungs: No respiratory distress. Good air movement. No rhonchi, wheezing, rales. Abdomen: Soft and nontender. Skin: Warm and dry. Neuro: Alert and oriented X 3. Cranial Nerves II-XII grossly intact. No peripheral motor deficits. Musculoskeletal: Severe wrist tenderness bilaterally. Equivocal left knee tenderness. Equivocal left foot tenderness, difficult to localize. All other major joints and bones are not tender with no limited ROM. I reviewed all diagnostic test results: My interpretation of the chest x-ray is NAD. My interpretation of the left foot x-rays is no fracture. My interpretation of the left knee x-rays is no fracture. My interpretation of the bilateral wrist x-rays is no fracture. Blood tests and urine tests are unremarkable. At this point, diagnoses include: Arthralgia with unclear etiology Treatment here included: IVF Toradol 30 mg IV SoluMedrol 125 mg IV Morphine 4 mg IV Zofran 4 mg IV Applied wrist splint bilaterally. She felt much better. Recommended more outpatient investigation. Based on my best medical judgment, made decision no further evaluation or treatment indicated at this time. Patient understands and agrees to the discharge instructions customized and printed, see below. Discharge Instructions from Dr. Mata printed for you: 1. After extensive evaluation, exact cause of your severe joint pain (especially in the wrists) was not determined. 2. To find the cause/treatment, you will need more investigation with your private doctor. 3. For rest, wear wrist splints for 3 days then as needed. 4. Elevate above the heart level for 3 days as much as possible. Placing your hand on your head is a good method. 5. Apply ice or heat if helpful. 6. Ibuprofen 600 mg every 6-8 hours today and tomorrow to decrease inflammation then as needed. 7. Prednisone to further decrease inflammation. 8. Tylenol with codeine for severe pain. 9. See a private doctor on 10/24/2025 for recheck, as scheduled. Ask to review all test results and official radiology reports, to make sure you receive all necessary follow-ups and monitoring. Ask for help with more investigation, including specialized blood tests not available here. And referrals to see specialists, including social worker palliative care. 10. Seek immediate medical care with worsening or with any concerns. Fred Mata MD Patient data External records reviewed:: [facility] previous records (Reviewed prior ED records from 09/28/25. Patient was seen for Abdominal pain.) Clinical information provided by:: patient Social determinants that could affect healthcare access:: none Patient has the following chronic illnesses:: Anemia How is presenting disease/condition affected by chronic disease/condition?: uneffected by Evaluation data The following diagnostics were reviewed and interpreted by me:: lab results and radiology exam(s) Lab and/or radiology exams considered but not ordered:: None Interpretation Summary: I reviewed all diagnostic test results: My interpretation of the chest x-ray is NAD. My interpretation of the left foot x-rays is no fracture. My interpretation of the left knee x-rays is no fracture. My interpretation of the bilateral wrist x-rays is no fracture. Blood tests and urine tests are unremarkable. Medications / Prescriptions Medications or Prescriptions considered but not ordered:: None Medication administrations:: Medication Administration History Discontinued Medications Sodium Chloride (Ns) 1,000 mls @ 999 mls/hr IV .Q1H1M ONE Stop: 10/23/25 03:11 Last Infusion: 10/23/25 04:02 Dose: Infused Documented By: Admin: 10/23/25 03:03 Dose: 999 mls/hr Documented By: [email or web address] Ketorolac Tromethamine (Ketorolac Inj 30 Mg/Ml Vial) 30 mg IVP X1 ONE Stop: 10/23/25 02:12 Last Admin: 10/23/25 03:03 Dose: 30 mg Documented By: BARBY Methylprednisolone Sodium Succinate (Methylprednisolone Sod Succ 62.5 Mg/Ml 2ml Vial) 125 mg IVP X1 ONE Stop: 10/23/25 02:12 Last Admin: 10/23/25 03:03 Dose: 125 mg Documented By: BARBY Morphine Sulfate (Morphine Sulf Inj 4 Mg/Ml Vial) 4 mg IV X1 ONE Stop: 10/23/25 02:12 Last Admin: 10/23/25 03:02 Dose: 4 mg Documented By: BARBY Ondansetron HCl (Ondansetron Inj 2 Mg/Ml Inj 2 Ml) 4 mg IVP X1 ONE; Protocol Stop: 10/23/25 02:12 Last Admin: 10/23/25 03:02 Dose: 4 mg Documented By: BARBY Treatment here included: IVF Toradol 30 mg IV SoluMedrol 125 mg IV Morphine 4 mg IV Zofran 4 mg IV Applied wrist splint bilaterally. Consultations Consultation(s) initiated? (list below): No Diagnosis Extremity Problem Differential Diagnosis: gout, cellulitis, superficial thrombophlebitis and other (Arthritis) Most likely diagnosis given after review of the tests above:: Arthralgia with unclear etiology Admission Indicated Admission indicated?: not indicated Explain why admission is indicated or not indicated:: With significant improvement and no condition needing emergent intervention, there was no indication for admission. Admission Request Was there a request for admission?: No Disposition Plan Disposition Plan: Discharge Discharge Attestation Discharge Attestation: The patient and all family members were given an opportunity to ask questions and understood the discharge instructions. Discharge instructions specifically effects, indications for sooner follow up or return to the emergency department, and the expected course of current diagnosis. Patient condition: Stable Discharge Plan Plan Patient Disposition: HOME (Self Care) Prescriptions/Referrals Prescriptions/Med Rec: New acetaminophen-codeine 300-30 mg tablet 2 tab PO Q8H MDD 6 PRN (Reason: pain) Qty: 10 0RF prednisone 50 mg tablet 50 mg PO QDAY Qty: 3 0RF No Action hydrocodone-acetaminophen 5-325 mg tablet 1 tab PO Q6H MDD 4 Qty: 20 0RF Referrals: No Primary/Family,Physician [Primary Care Provider] - In 1 week Problem List Clinical Impression: Wrist pain Patient/Caregiver Discharge Instructions Discharge Activity: activity as tolerated Education Materials: ED Arthralgia Additional Instructions: Discharge Instructions from Dr. Mata printed for you: 1. After extensive evaluation, exact cause of your severe joint pain (especially in the wrists) was not determined. 2. To find the cause/treatment, you will need more investigation with your private doctor. 3. For rest, wear wrist splints for 3 days then as needed. 4. Elevate above the heart level for 3 days as much as possible. Placing your hand on your head is a good method. 5. Apply ice or heat if helpful. 6. Ibuprofen 600 mg every 6-8 hours today and tomorrow to decrease inflammation then as needed. 7. Prednisone to further decrease inflammation. 8. Tylenol with codeine for severe pain. 9. See a private doctor on 10/24/2025 for recheck, as scheduled. Ask to review all test results and official radiology reports, to make sure you receive all necessary follow-ups and monitoring. Ask for help with more investigation, including specialized blood tests not available here. And referrals to see specialists, including social worker palliative care. 10. Seek immediate medical care with worsening or with any concerns. Print Language: Maltese Stand Alone Forms: Lizeth Award Info., Work/School Release, Patient Portal Info Letter
--- NOTE | 2025-10-23 02:12 | XR_ITS ---
EXAMINATION: PA chest single view TECHNIQUE: Upright PA chest single view Date and time: October 23, 2025, 0234 hours INDICATION: Shortness of breath today. FINDINGS: Normal heart size Lungs are clear. Osseous structures are intact IMPRESSION: No active disease
--- NOTE | 2025-10-23 02:13 | XR_ITS ---
EXAMINATION: Bilateral wrist 6 views TECHNIQUE: AP oblique lateral each wrist total 6 views Date and time: October 23, 2025, 0232 hours INDICATIONS: Bilateral wrist pain beginning 2 days ago. FINDINGS: No fracture or dislocation involving either wrist No erosive or other significant arthritic change involving either wrist No foreign bodies IMPRESSION: No erosive or other significant arthritic change involving either wrist
--- NOTE | 2025-10-23 02:14 | XR_ITS ---
Examination: Foot, right, 3 views Technique: AP, oblique, lateral views foot, 3 views Date and time of exam: October 23, 2025, 0232 hours INDICATIONS: Right foot pain beginning 2 days ago no trauma. FINDINGS: No fracture or dislocation Mild soft tissue swelling about the fifth metatarsophalangeal joint 2 mm plantar bony calcaneal spur No cortical bone destruction IMPRESSION: Mild soft tissue swelling about the fifth metatarsophalangeal joint
--- NOTE | 2025-10-23 02:14 | XR_ITS ---
Examination: Knee, right, 3 views Technique: Knee AP, lateral, oblique 3 views Date and time of exam: October 23, 2025, 0232 hours INDICATIONS: Left knee pain beginning today. FINDINGS: Minimal narrowing medial joint space No fracture or dislocation No foreign body IMPRESSION: Minimal narrowing medial joint space
[2025-10-23 02:47] LABS: Lactate (Lactic Acid) 0.6 mMol/L (0.4-2.0)
[2025-10-23 02:48] LABS: Base Excess, Venous 3 (-3-3); O2 Saturation, Venous 56 % (96-97); PCO2, Venous 50 mmHg (36-56); PO2, Venous 31 mmHg (15-58); pH, Venous 7.38 (7.33-7.66)
[2025-10-23 02:50] LABS: Basophils # (Auto) 0.1 Thou/mm3 (0.0-0.2); Basophils % (Auto) 1 % (0-2.5); Eosinophils # (Auto) 0.4 Thou/mm3 (0.0-0.5); Eosinophils % (Auto) 6 % (0-10); Hematocrit 34.8 % (36.0-46.0); Hemoglobin 11.4 g/dL (12.0-16.0); Immature Granulocytes Auto 0.01 Thou/mm3 (0.00-0.00); Lymphocytes # (Auto) 2.2 Thou/mm3 (1.0-4.8); Lymphocytes % (Auto) 30 % (10-50); Mean Corpuscular HGB Conc 32.8 g/dl (31.0-37.0); Mean Corpuscular Hemoglobin 28.5 pg (25.0-35.0); Mean Corpuscular Volume 87 fL (80-100); Monocytes # (Auto) 0.8 Thou/mm3 (0.0-0.8); Monocytes % (Auto) 11 % (0-12); Neutrophils # (Auto) 3.7 Thou/mm3 (1.8-7.7); Neutrophils % (Auto) 52 % (37-80); Nucleated Red Blood Cell # 0.00 Thou/mm3 (0.00-0.00); Nucleated Red Blood Cell % 0 /100 WBC (0); Platelet Count 332 Thou/mm3 (140-440); RDW Standard Deviation 45.5 fL (36.4-46.3); Red Blood Count 4.00 Miln/mm3 (4.00-5.20); White Blood Count 7.3 Thou/mm3 (3.6-11.0)
[2025-10-23 02:52] LABS: Collection Type, Urine Clean Catch
[2025-10-23 02:53] LABS: Beta Hydroxybutyrate 0.1 mmol/L (<0.6)
[2025-10-23 02:54] LABS: RA Screen Negative (Negative)
[2025-10-23 02:57] LABS: HCG,Qualitative Serum Negative
[2025-10-23 02:59] LABS: Sed Rate (ESR) 24 mm/hr (0-20)
[2025-10-23 03:00] LABS: Bacteria,Urine Rare; Bilirubin,Urine Negative (Negative); Blood,Urine Negative (Negative); Clarity,Urine Clear (Clear/Hazy); Color,Urine Lt-Yellow (Lt Yel-Yel); Culture Indicated,Urine Not Indicated; Glucose, Urine Negative (Negative); Ketones,Urine Negative (Negative); Leukocyte Esterase,Urine Negative (Negative); Nitrite,Urine Negative (Negative); PH,Urine 7.0 (5.0-7.0); Protein,Urine Negative (Neg - Trace); RBC,Urine 1 /hpf (0-3); Specific Gravity,Urine 1.013 (1.001-1.035); Squamous Epithelial Cell,Urine 2 /hpf (0-5); Urobilinogen,Urine Negative mg/dL (0.0-1.0); WBC,Urine 5 /hpf (0-5)
[2025-10-23 03:00] LABS: INR 1.1 (0.9-1.3); Partial Thromboplastin Time 27.5 Seconds (22.0-36.0); Prothrombin Time 11.2 Seconds (9.0-12.2)
[2025-10-23] MEDS: ONDANSETRON INJ 2 MG/ML INJ 2 ML 4 MG IVP (03:02)
[2025-10-23] MEDS: MORPHINE SULF INJ 4 MG/ML VIAL IV (03:02)
[2025-10-23] MEDS: SODIUM CHLORIDE 0.9% 1000 ML 1,000 ML 999 ML IV (03:03)
[2025-10-23] MEDS: MethylPREDNISolone SOD SUCC 62.5 MG/ML 2ML VIAL 125 MG IVP (03:03)
[2025-10-23] MEDS: KETOROLAC INJ 30 MG/ML VIAL IVP (03:03)
[2025-10-23 03:04] VITALS: BP 110/62; PULSE 63; RESP 18; TEMP 36.7; O2SAT 100
[2025-10-23 03:08] LABS: Amphetamine/Methamp Scrn,U Negative (Negative); Barbiturate Screen,Urine Negative (Negative); Benzodiazepines Screen,Urine Negative (Negative); Benzoylecgonine Screen, Ur Negative (Negative); Fentanyl Screen,Urine Negative (Negative); Opiate Screen,Urine Positive (Negative); THC Screen,Urine Negative (Negative)
[2025-10-23 03:11] LABS: Glucose Estimated Average 105 mg/dL (80-131); Hemoglobin A1C 5.3 % Hgb (4.8-6.0)
[2025-10-23 03:19] LABS: Alanine Aminotransferase 12 U/L (10-49); Albumin, Serum 4.7 gm/dL (3.5-5.0); Albumin/Globulin Ratio 1.8 (1.2-2.2); Alcohol, Blood Medical < 3.0 mg/dL (0-10.0); Alkaline Phosphatase 58 U/L (46-116); Anion Gap 8 (7-16); Aspartate Amino Transferase 18 U/L (0-34); BUN/Creatinine Ratio 14 Ratio (12-20); Bilirubin,Direct 0.2 mg/dL (0.0-0.3); Bilirubin,Total 0.6 mg/dL (0.3-1.2); Blood Urea Nitrogen 10 mg/dL (9-23); C-Reactive Protein < 0.5 mg/dL (0.0-0.9); Calcium 9.2 mg/dL (8.3-10.6); Calcium (Corrected) 9.2 mg/dL (8.5-10.1); Carbon Dioxide 27.7 mMol/L (20.0-31.0); Chloride 104 mMol/L (98-107); Creatine Kinase 51 U/L (34-171); Creatinine (Component) 0.7 mg/dL (0.6-1.3); Estimated Creatinine Clearance 125.6 mL/min (>60); Globulin 2.6 gm/dL (2.3-3.5); Glucose 103 mg/dL (74-106); Magnesium 2.2 mg/dL (1.6-2.6); Osmolality,Calculated 278 (275-295); Potassium 3.8 mMol/L (3.4-5.1); Sodium 140 mMol/L (136-145); Thyroid Stimulating Hormone 5.29 uIU/mL (0.55-4.78); Total Protein 7.3 gm/dL (5.7-8.2); Uric Acid 4.0 mg/dL (3.1-7.8); eGFR > 60 See Note
[2025-10-23 03:20] LABS: Procalcitonin 0.05 ng/ml (0.0-0.49)
[2025-10-23 03:29] LABS: B-Type Natriuretic Peptide < 20 pg/mL (0-100)
[2025-10-27 07:01] LABS: ANA Screen, IFA NEGATIVE (NEGATIVE)
== END 2025-10-23 04:22 | disposition home or self-care (01) ==
PROVIDERS: Emergency Provider Emergency Medicine
DX: M25.532 Pain in left wrist (principal); M25.531 Pain in right wrist; R06.02 Shortness of breath; M79.671 Pain in right foot; M25.562 Pain in left knee
CPT/HCPCS: 36415; 71045; 73110; 73562; 73630; 80053; 80307; 80320; 81001; 82010; 82248; 82550; 82803; 83036; 83605; 83735; 83880; 84145; 84443; 84550; 84703; 85025; 85610; 85652; 85730; 86038; 86140; 86430; 87040; 96374; 96375; 99284; J1885; J2270; J2405; J2919; J7030; G0480